=== PATIENT | male | born 1955 | race Caucasian/White ===

== ENCOUNTER 2025-07-07 07:58 | Day surgery (SDC) | payer MEDICARE ==
[~2025-07-07] VITALS: Ht 172.7 cm; Wt 68.0 kg
[2025-07-07] VITALS (38 sets, daily range): BP systolic 81–139; BP diastolic 51–86; PULSE 44–105; RESP 6–18; TEMP 95.6; O2SAT 94–100
[2025-07-07] MEDS: ringers solution, lacted 1,000 ML IV SCH (05:30)
[~2025-07-07 07:58] MED LIST: LEVO125T68 PO
== END 2025-07-07 16:25 | disposition home or self-care (01) ==
LOC: PAS 07:58
PROVIDERS: ATTEND Internal Medicine Gastroenterology
DX: Z12.11 Encounter for screening for malignant neoplasm of colon (principal); K57.30 Diverticulosis of large intestine without perforation or abscess without bleeding; Z92.3 Personal history of irradiation; Z98.890 Other specified postprocedural states
CPT/HCPCS: 99152; A4620; G0121; J7120; Z7512; Z7610; 45378

== ENCOUNTER 2025-07-08 09:32 | Day surgery (SDC) | payer MEDICARE ==
[~2025-07-08] VITALS: Ht 172.7 cm; Wt 66.2 kg
[2025-07-08 09:50] VITALS: BP 107/70; PULSE 54; RESP 16; TEMP 97.1; O2SAT 98
[2025-07-08] MEDS ORDERED: ringers solution, lacted 1,000 ML IV ONE (10:20)
--- NOTE | 2025-07-08 10:37 | ELECTROCARDIOGRAPH REPORT ---
[facility] Test Date: 2025-07-08 Test Time: 10:36:25 Pat Name: TIMUR QUIROS Department: [facility] Patient ID: [id number] Room: Gender: M [employer]: DENA : [id number] Requested By: JORDYN MESA Order Number: [id number] Reading MD: Dr. ANNA Londono Measurements Intervals [place] Rate: 52 P: 32 [place]: 184 QRS: 11 QRSD: 96 T: 64 QT: 472 QTc: 439 Interpretive Statements Sinus rhythm Minimal ST elevation, anterior leads Electronically Signed On 07-08-2025 17:04:[address] ANNA Londono Please click the below link to view image of tracing.
[2025-07-08] MEDS ORDERED: propofol inj 20 ML IV ONE ×4 (12:20→12:44)
[2025-07-08 12:56] VITALS: BP 90/68; PULSE 76; RESP 16; O2SAT 98
[2025-07-08 13:00] VITALS: BP 101/64; PULSE 64; RESP 14; O2SAT 97
[2025-07-08 13:10] VITALS: BP 98/70; PULSE 55; RESP 14; O2SAT 96
[2025-07-08 13:20] VITALS: BP 109/74; PULSE 58; RESP 12; O2SAT 98
[2025-07-08 13:30] VITALS: BP 106/71; PULSE 51; RESP 14; O2SAT 99
== END 2025-07-08 13:37 | disposition home or self-care (01) ==
LOC: OR 09:32
PROVIDERS: ATTEND Internal Medicine Gastroenterology
DX: Z12.11 Encounter for screening for malignant neoplasm of colon (principal); K57.30 Diverticulosis of large intestine without perforation or abscess without bleeding; K63.5 Polyp of colon; K64.4 Residual hemorrhoidal skin tags; R94.31 Abnormal electrocardiogram [ECG] [EKG]; Z85.828 Personal history of other malignant neoplasm of skin; Z98.890 Other specified postprocedural states; Z92.3 Personal history of irradiation
CPT/HCPCS: 45385; 88305; 93005; J2704; J7120; Z7512; Z7610